=== PATIENT | female | born 1980 | race Caucasian/White ===

== ENCOUNTER 2017-02-02 08:25 | Emergency (ER) | payer MEDICAID ==
[~2017-02-02 08:25] MED LIST: GLU5 PO; GLU500 PO; METFORMIN
[2017-02-02 09:09] LABS: BASOPHIL % 0.3 % (0-2); PLATELET COUNT 244 x10^3mcL (130-400); RED CELL DISTRIBUTION WIDTH 13.6 % (11.5-14.5)
[2017-02-02 09:15] LABS: CALCIUM 8.5 mg/dL (8.5-10.1); CARBON DIOXIDE 27.1 mmol/L (21-32); CHLORIDE SERUM 102 mmol/L (98-107); CREATININE SERUM 0.7 mg/dL (0.6-1.0); GFR1 > 60 mL/min; GLUCOSE SERUM 361 mg/dL (74-106); POTASSIUM SERUM 4.3 mmol/L (3.5-5.1); SODIUM SERUM 137 mmol/L (136-145)
[2017-02-02 09:48] VITALS: BP 105/51
== END 2017-02-02 10:40 | disposition home or self-care (01) ==
LOC: ED 08:25
PROVIDERS: Emergency Medicine
DX: B34.9 Viral infection, unspecified (principal); I10 Essential (primary) hypertension; E11.9 Type 2 diabetes mellitus without complications; R11.2 Nausea with vomiting, unspecified; Z88.8 Allergy status to other drugs, medicaments and biological substances
CPT/HCPCS: J1815; J1885; J7613; J7644; Q0092; Q0162

== ENCOUNTER 2017-04-04 19:50 | Emergency (ER) | payer MEDICAID ==
[~2017-04-04] VITALS: Ht 170.2 cm; Wt 136.1 kg
[2017-04-04 20:05] VITALS: BP 133/59
[2017-04-04 22:09] LABS: BASOPHIL % 0.7 % (0-2); PLATELET COUNT 310 x10^3mcL (130-400)
[2017-04-04 22:10] LABS: RED CELL DISTRIBUTION WIDTH 14.7 % (11.5-14.5)
[2017-04-04 22:25] LABS: CALCIUM 8.9 mg/dL (8.5-10.1); CARBON DIOXIDE 26.6 mmol/L (21-32); CHLORIDE SERUM 97 mmol/L (98-107); CREATININE SERUM 0.8 mg/dL (0.6-1.0); GFR1 > 60 mL/min; GLUCOSE SERUM 393 mg/dL (74-106); SODIUM SERUM 132 mmol/L (136-145)
[2017-04-04 22:29] LABS: ALKALINE PHOSPHATASE 114 U/L (46-116); ALT/SGPT 19 U/L (14-59); AMYLASE 37 U/L (25-115); AST/SGOT 12 U/L (15-37); BILIRUBIN TOTAL 0.27 mg/dL (0.20-1.00); LIPASE 173 IU/L (73-393); TOTAL PROTEIN, SERUM 7.2 g/dL (6.4-8.2)
[2017-04-04 22:30] LABS: ALBUMIN 3.1 g/dL (3.4-5.0)
== END 2017-04-04 23:50 | disposition home or self-care (01) ==
LOC: ED 19:50
PROVIDERS: Emergency Medicine
DX: R10.11 Right upper quadrant pain (principal); I10 Essential (primary) hypertension; E11.9 Type 2 diabetes mellitus without complications; Z79.84 Long term (current) use of oral hypoglycemic drugs
CPT/HCPCS: 36415; 83880; J1885

== ENCOUNTER 2017-06-06 16:17 | Emergency (ER) | payer MEDICAID ==
[2017-06-06 18:05] VITALS: BP 131/74
== END 2017-06-06 18:05 | disposition home or self-care (01) ==
LOC: ED 16:17
DX: M54.42 Lumbago with sciatica, left side (principal); I10 Essential (primary) hypertension; E11.9 Type 2 diabetes mellitus without complications; Z88.5 Allergy status to narcotic agent; Z79.84 Long term (current) use of oral hypoglycemic drugs
CPT/HCPCS: Q0092

== ENCOUNTER 2017-07-02 08:19 | Emergency (ER) | payer MEDICAID ==
[~2017-07-02] VITALS: Ht 170.2 cm; Wt 136.1 kg
[2017-07-02 10:11] VITALS: BP 140/65
== END 2017-07-02 10:10 | disposition home or self-care (01) ==
LOC: ED 08:19
DX: M54.31 Sciatica, right side (principal); I10 Essential (primary) hypertension; E11.9 Type 2 diabetes mellitus without complications; Z90.89 Acquired absence of other organs; Z90.49 Acquired absence of other specified parts of digestive tract

== ENCOUNTER 2017-07-06 09:31 | Emergency (ER) | payer MEDICAID ==
[2017-07-06 13:13] VITALS: BP 129/74
== END 2017-07-06 13:13 | disposition home or self-care (01) ==
LOC: ED 09:31
DX: M54.31 Sciatica, right side (principal); R51 Headache; I10 Essential (primary) hypertension; E11.9 Type 2 diabetes mellitus without complications; Z90.49 Acquired absence of other specified parts of digestive tract; Z90.89 Acquired absence of other organs; Z88.6 Allergy status to analgesic agent; Z79.84 Long term (current) use of oral hypoglycemic drugs

== ENCOUNTER 2017-08-14 13:55 | Emergency (ER) | payer MEDICAID ==
[~2017-08-14] VITALS: Ht 170.2 cm; Wt 132.0 kg
[2017-08-14 14:45] LABS: CALCIUM 8.6 mg/dL (8.5-10.1); CARBON DIOXIDE 26.6 mmol/L (21-32); CHLORIDE SERUM 94 mmol/L (98-107); CREATININE SERUM 0.7 mg/dL (0.6-1.0); GFR1 > 60 mL/min; GLUCOSE SERUM 334 mg/dL (74-106); POTASSIUM SERUM 4.2 mmol/L (3.5-5.1); SODIUM SERUM 132 mmol/L (136-145)
[2017-08-14 14:47] LABS: PLATELET COUNT 201 x10^3mcL (130-400)
[2017-08-14 14:50] LABS: BASOPHIL % 0 % (0-2); RED CELL DISTRIBUTION WIDTH 14.8 % (11.5-14.5)
[2017-08-14 14:52] LABS: ALKALINE PHOSPHATASE 121 U/L (46-116); ALT/SGPT 21 U/L (14-59); AST/SGOT 22 U/L (15-37); BILIRUBIN TOTAL 0.7 mg/dL (0.20-1.00); LIPASE 85 IU/L (73-393); TOTAL PROTEIN, SERUM 7.4 g/dL (6.4-8.2)
[2017-08-14 14:53] LABS: ALBUMIN 2.7 g/dL (3.4-5.0); AMYLASE 22 U/L (25-115)
[2017-08-14 15:23] VITALS: BP 97/64
== END 2017-08-14 15:23 | disposition home or self-care (01) ==
LOC: ED 13:55
PROVIDERS: Emergency Medicine
DX: K29.70 Gastritis, unspecified, without bleeding (principal); I10 Essential (primary) hypertension; E11.9 Type 2 diabetes mellitus without complications; Z88.5 Allergy status to narcotic agent; Z79.84 Long term (current) use of oral hypoglycemic drugs
CPT/HCPCS: 83880; J0780; J1885

== ENCOUNTER 2017-09-17 11:46 | Emergency (ER) | payer MEDICAID ==
[~2017-09-17] VITALS: Ht 61 cm; Wt 2.5 kg
[2017-09-17 12:03] VITALS: Ht 61 cm; Wt 2.5 kg
[2017-09-17 16:00] LABS: BASOPHIL % 0.1 % (0-2); PLATELET COUNT 391 x10^3mcL (130-400); RED CELL DISTRIBUTION WIDTH 14.4 % (11.5-14.5)
[2017-09-17 16:08] LABS: UA SPECIFIC GRAVITY <=1.005 (1.005-1.035); microscopic required? YES; urine erythrocyte TRACE (NEGATIVE)
[2017-09-17 16:12] LABS: CALCIUM 9.2 mg/dL (8.5-10.1); CARBON DIOXIDE 24.8 mmol/L (21-32); CHLORIDE SERUM 91 mmol/L (98-107); CREATININE SERUM 0.8 mg/dL (0.6-1.0); GFR1 > 60 mL/min; GLUCOSE SERUM 395 mg/dL (74-106); POTASSIUM SERUM 3.8 mmol/L (3.5-5.1); SODIUM SERUM 129 mmol/L (136-145)
[2017-09-17 16:17] LABS: ALKALINE PHOSPHATASE 106 U/L (46-116); ALT/SGPT 9 U/L (14-59); AST/SGOT 7 U/L (15-37); BILIRUBIN TOTAL 0.64 mg/dL (0.20-1.00); HDL CHOLESTEROL 44 mg/dL (40-60); LIPASE 118 IU/L (73-393)
[2017-09-17 16:18] LABS: ALBUMIN 2.9 g/dL (3.4-5.0); AMYLASE 22 U/L (25-115); CHOLESTEROL 130 mg/dL (<200); TOTAL PROTEIN, SERUM 8.4 g/dL (6.4-8.2)
[2017-09-17 16:19] LABS: AMPHETAMINE QUAL UR NONE DETECTED (NEG <=1000)
[2017-09-17 19:15] VITALS: BP 105/66
== END 2017-09-17 19:16 | disposition home or self-care (01) ==
LOC: ED 11:46 → DU 17:23 → ED 17:23
PROVIDERS: Emergency Medicine
DX: E11.10 Type 2 diabetes mellitus with ketoacidosis without coma (principal); N39.0 Urinary tract infection, site not specified; E66.01 Morbid (severe) obesity due to excess calories; I10 Essential (primary) hypertension
CPT/HCPCS: 82962; 83880; J1630; J1815; J1885; J1956; J7030

== ENCOUNTER 2017-12-15 07:02 | Emergency (ER) | payer OTHER ==
[~2017-12-15] VITALS: Ht 170.2 cm; Wt 136.1 kg
[2017-12-15 07:10] VITALS: Ht 170.2 cm; Wt 136.1 kg
[2017-12-15 08:10] LABS: microscopic required? YES; urine erythrocyte TRACE (NEGATIVE)
[2017-12-15 08:19] LABS: CALCIUM 9.1 mg/dL (8.5-10.1); CARBON DIOXIDE 28.2 mmol/L (21-32); CHLORIDE SERUM 98 mmol/L (98-107); CREATININE SERUM 0.6 mg/dL (0.6-1.0); GFR1 > 60 mL/min; GLUCOSE SERUM 337 mg/dL (74-106); POTASSIUM SERUM 4.4 mmol/L (3.5-5.1); SODIUM SERUM 132 mmol/L (136-145)
[2017-12-15 08:25] LABS: ALBUMIN 3.2 g/dL (3.4-5.0); ALKALINE PHOSPHATASE 87 U/L (46-116); ALT/SGPT 20 U/L (14-59); AST/SGOT 15 U/L (15-37); BASOPHIL % 0.3 % (0-2); BILIRUBIN TOTAL 0.4 mg/dL (0.20-1.00); LIPASE 126 IU/L (73-393); PLATELET COUNT 358 x10^3mcL (130-400); TOTAL PROTEIN, SERUM 7.3 g/dL (6.4-8.2)
[2017-12-15 08:27] LABS: RED CELL DISTRIBUTION WIDTH 17.6 % (11.5-14.5)
[2017-12-15 09:36] VITALS: BP 129/73
== END 2017-12-15 09:37 | disposition home or self-care (01) ==
LOC: ED 07:02
PROVIDERS: Emergency Medicine
DX: N10 Acute pyelonephritis (principal); E66.9 Obesity, unspecified; E11.65 Type 2 diabetes mellitus with hyperglycemia; I10 Essential (primary) hypertension; R11.0 Nausea; R06.02 Shortness of breath; Z90.49 Acquired absence of other specified parts of digestive tract
CPT/HCPCS: J0696; J3010; J7030; Q0162

== ENCOUNTER 2018-01-05 07:56 | Emergency (ER) | payer OTHER ==
[~2018-01-05] VITALS: Ht 170.2 cm; Wt 126.1 kg
[2018-01-05 08:07] VITALS: Ht 170.2 cm; Wt 126.1 kg
[2018-01-05 11:31] VITALS: BP 111/65
== END 2018-01-05 11:31 | disposition home or self-care (01) ==
LOC: ED 07:56
DX: S86.811A Strain of other muscle(s) and tendon(s) at lower leg level, right leg, initial encounter (principal); M54.41 Lumbago with sciatica, right side; I10 Essential (primary) hypertension; E11.9 Type 2 diabetes mellitus without complications; E66.9 Obesity, unspecified; Z90.49 Acquired absence of other specified parts of digestive tract; W22.8XXA Striking against or struck by other objects, initial encounter; Y93.89 Activity, other specified; Y92.89 Other specified places as the place of occurrence of the external cause; Y99.8 Other external cause status
CPT/HCPCS: J1885; J2270; Q0092; Q0162

== ENCOUNTER 2018-05-27 15:50 | Emergency (ER) | payer OTHER ==
[~2018-05-27] VITALS: Ht 170.2 cm; Wt 113.4 kg
[2018-05-27 16:25] VITALS: Ht 170.2 cm; Wt 113.4 kg
[2018-05-27 17:57] LABS: CALCIUM 8.7 mg/dL (8.5-10.1); CARBON DIOXIDE 30.8 mmol/L (21-32); CHLORIDE SERUM 99 mmol/L (98-107); CREATININE SERUM 0.8 mg/dL (0.6-1.0); GFR1 > 60 mL/min; GLUCOSE SERUM 407 mg/dL (74-106); POTASSIUM SERUM 4.3 mmol/L (3.5-5.1); SODIUM SERUM 137 mmol/L (136-145)
[2018-05-27 18:42] VITALS: BP 140/80
== END 2018-05-27 19:12 | disposition home or self-care (01) ==
LOC: ED 15:50
PROVIDERS: Emergency Medicine
DX: S92.192A Other fracture of left talus, initial encounter for closed fracture (principal); S96.912A Strain of unspecified muscle and tendon at ankle and foot level, left foot, initial encounter; E11.9 Type 2 diabetes mellitus without complications; I10 Essential (primary) hypertension; E66.9 Obesity, unspecified; Z90.89 Acquired absence of other organs; Z90.49 Acquired absence of other specified parts of digestive tract; Z98.890 Other specified postprocedural states; W18.39XA Other fall on same level, initial encounter; Y93.89 Activity, other specified; Y92.89 Other specified places as the place of occurrence of the external cause; Y99.8 Other external cause status
CPT/HCPCS: 36415; 82962; J1815; J1885

== ENCOUNTER 2018-06-03 05:44 | Emergency (ER) | payer OTHER ==
[~2018-06-03] VITALS: Ht 170.2 cm; Wt 130.6 kg
[2018-06-03 05:47] VITALS: Ht 170.2 cm; Wt 130.6 kg
[2018-06-03 06:50] LABS: BASOPHIL % 0.7 % (0-2); PLATELET COUNT 277 x10^3mcL (130-400); RED CELL DISTRIBUTION WIDTH 12.9 % (11.5-14.5)
[2018-06-03 06:58] LABS: CALCIUM 8.4 mg/dL (8.5-10.1); CARBON DIOXIDE 26.9 mmol/L (21-32); CHLORIDE SERUM 99 mmol/L (98-107); CREATININE SERUM 0.6 mg/dL (0.6-1.0); GFR1 > 60 mL/min; GLUCOSE SERUM 336 mg/dL (74-106); POTASSIUM SERUM 4.5 mmol/L (3.5-5.1); SODIUM SERUM 135 mmol/L (136-145)
[2018-06-03 07:02] LABS: ALKALINE PHOSPHATASE 112 U/L (46-116); ALT/SGPT 15 U/L (14-59); AST/SGOT 12 U/L (15-37); BILIRUBIN TOTAL 0.53 mg/dL (0.20-1.00); LIPASE 162 IU/L (73-393); TOTAL PROTEIN, SERUM 7.5 g/dL (6.4-8.2)
[2018-06-03 07:03] LABS: ALBUMIN 3.1 g/dL (3.4-5.0)
[2018-06-03 08:47] LABS: UA SPECIFIC GRAVITY 1.015 (1.005-1.035); microscopic required? YES; urine erythrocyte 2+ (NEGATIVE)
[2018-06-03 09:45] VITALS: BP 138/84
== END 2018-06-03 09:45 | disposition home or self-care (01) ==
LOC: ED 05:44
PROVIDERS: Emergency Medicine
DX: N39.0 Urinary tract infection, site not specified (principal); Z90.89 Acquired absence of other organs; I10 Essential (primary) hypertension; E66.9 Obesity, unspecified; Z68.42 Body mass index [BMI] 45.0-49.9, adult; Z90.49 Acquired absence of other specified parts of digestive tract; E11.65 Type 2 diabetes mellitus with hyperglycemia; Z98.890 Other specified postprocedural states
CPT/HCPCS: 87046; 87046-59; J1885; J7030; Q0162

== ENCOUNTER 2019-01-21 14:20 | Emergency (ER) | payer OTHER ==
[~2019-01-21] VITALS: Ht 170.2 cm; Wt 136.1 kg
[2019-01-21 14:27] VITALS: Ht 170.2 cm; Wt 136.1 kg
[2019-01-21 17:38] LABS: BASOPHIL % 0.2 % (0-2); PLATELET COUNT 253 x10^3mcL (130-400); RED CELL DISTRIBUTION WIDTH 14.1 % (11.5-14.5)
[2019-01-21 17:45] LABS: CALCIUM 9.1 mg/dL (8.5-10.1); CARBON DIOXIDE 30.5 mmol/L (21-32); CHLORIDE SERUM 96 mmol/L (98-107); GFR1 > 60 mL/min; GLUCOSE SERUM 335 mg/dL (74-106); POTASSIUM SERUM 4.6 mmol/L (3.5-5.1); SODIUM SERUM 133 mmol/L (136-145)
[2019-01-21 17:49] LABS: ALKALINE PHOSPHATASE 113 U/L (46-116); ALT/SGPT 17 U/L (14-59); AST/SGOT 11 U/L (15-37); BILIRUBIN TOTAL 0.4 mg/dL (0.20-1.00); TOTAL PROTEIN, SERUM 7.6 g/dL (6.4-8.2)
[2019-01-21 17:53] LABS: ALBUMIN 3.2 g/dL (3.4-5.0)
[2019-01-21 18:04] LABS: microscopic required? YES; urine erythrocyte TRACE (NEGATIVE)
[2019-01-21 21:26] VITALS: BP 150/79
== END 2019-01-21 21:26 | disposition left against medical advice (07) ==
LOC: ED 14:20
PROVIDERS: Emergency Medicine
DX: R65.10 Systemic inflammatory response syndrome (SIRS) of non-infectious origin without acute organ dysfunction (principal); N39.0 Urinary tract infection, site not specified; I10 Essential (primary) hypertension; E66.9 Obesity, unspecified; E11.9 Type 2 diabetes mellitus without complications; Z90.89 Acquired absence of other organs; Z90.49 Acquired absence of other specified parts of digestive tract; Z98.890 Other specified postprocedural states
CPT/HCPCS: 87804; J1885; J1956; J2405; J7030; J7050; Q0092

== ENCOUNTER 2019-02-08 12:43 | Emergency (ER) | payer OTHER ==
[~2019-02-08] VITALS: Ht 170.2 cm; Wt 129.3 kg
[2019-02-08 12:54] VITALS: Ht 170.2 cm; Wt 129.3 kg
[2019-02-08 13:57] LABS: BASOPHIL % 0.4 % (0-2); PLATELET COUNT 366 x10^3mcL (130-400)
[2019-02-08 13:59] LABS: RED CELL DISTRIBUTION WIDTH 14.6 % (11.5-14.5)
[2019-02-08 14:24] LABS: FREE T4 0.93 ng/dL (0.76-1.46); FREE THYROXINE INDEX 2.1 ug/dL (1.4-4.5); T4(THYROXINE) 6.2 ug/dL (4.7-13.3)
[2019-02-08 14:53] LABS: CREATININE SERUM 1.1 mg/dL (0.6-1.0)
[2019-02-08 15:00] LABS: BILIRUBIN TOTAL 0.29 mg/dL (0.20-1.00); POTASSIUM SERUM 4.5 mmol/L (3.5-5.1); TOTAL PROTEIN, SERUM 7.4 g/dL (6.4-8.2)
[2019-02-08 15:01] LABS: ALBUMIN 3.3 g/dL (3.4-5.0); CHOLESTEROL/HDL RATIO 4.3
[2019-02-08 15:32] LABS: T3 TOTAL 0.83 ng/mL
[2019-02-08 16:37] VITALS: BP 111/66
== END 2019-02-08 17:47 | disposition home or self-care (01) ==
LOC: ED 12:43
PROVIDERS: Specialist
DX: E11.65 Type 2 diabetes mellitus with hyperglycemia (principal); E66.01 Morbid (severe) obesity due to excess calories; I10 Essential (primary) hypertension; Z90.89 Acquired absence of other organs; Z90.49 Acquired absence of other specified parts of digestive tract; Z98.890 Other specified postprocedural states
CPT/HCPCS: 82962; 83880; 84439; J1815; J7030; Q0092

== ENCOUNTER 2019-04-25 14:24 | Emergency (ER) | payer OTHER ==
[~2019-04-25] VITALS: Ht 170.2 cm; Wt 137.4 kg
[2019-04-25 14:36] VITALS: BP 129/71; Ht 170.2 cm; Wt 137.4 kg
== END 2019-04-25 17:00 | disposition left against medical advice (07) ==
LOC: ED 14:24
DX: Z53.21 Procedure and treatment not carried out due to patient leaving prior to being seen by health care provider (principal)
CPT/HCPCS: 82962

== ENCOUNTER 2019-06-27 21:43 | Inpatient (IN) | payer OTHER ==
[~2019-06-27] VITALS: Ht 172.7 cm; Wt 146.8 kg
[2019-06-27 23:04] LABS: PLATELET COUNT 198 x10^3mcL (130-400); RED CELL DISTRIBUTION WIDTH 14.5 % (11.5-14.5)
[2019-06-27 23:23] LABS: CARBON DIOXIDE 22.1 mmol/L (21-32); CHLORIDE SERUM 96 mmol/L (98-107); CREATININE SERUM 2.2 mg/dL (0.6-1.0); GFR1 27 mL/min; POTASSIUM SERUM 3.6 mmol/L (3.5-5.1); SODIUM SERUM 133 mmol/L (136-145)
[2019-06-27 23:24] LABS: ALBUMIN 2.5 g/dL (3.4-5.0); ALKALINE PHOSPHATASE 247 U/L (46-116); ALT/SGPT 25 U/L (14-59); AST/SGOT 39 U/L (15-37); BILIRUBIN TOTAL 0.6 mg/dL (0.20-1.00); CALCIUM 8.5 mg/dL (8.5-10.1); CHOLESTEROL 105 mg/dL (<200); LIPASE 89 IU/L (73-393); MAGNESIUM 1.1 mg/dL (1.8-2.4); TOTAL PROTEIN, SERUM 6.5 g/dL (6.4-8.2)
[2019-06-27 23:25] LABS: HDL CHOLESTEROL 46 mg/dL (40-60); T4(THYROXINE) 6.5 ug/dL (4.7-13.3)
[2019-06-27 23:28] LABS: BAND NEUTROPHIL 18 % (0-10); METAMYELOCTE 2 % (0-2); MONOCYTE 1 % (0-7); SEGMENTED NEUTROPHILS 76 % (37-75)
[2019-06-27 23:29] LABS: GLUCOSE SERUM 579 mg/dL (74-106)
[2019-06-27 23:32] LABS: rbc morphology (normal/abnorm) NORMAL (NORMAL)
[2019-06-28 01:09] LABS: microscopic required? YES; urine erythrocyte 1+ (NEGATIVE)
[2019-06-28 01:45] LABS: AMPHETAMINE QUAL UR NONE DETECTED (See below)
[2019-06-28 03:00] VITALS: BP 72/36
[2019-06-28] MEDS ORDERED: GLIPIZIDE5 M2 PO (03:06)
[2019-06-28] MEDS ORDERED: GLIPIZIDE2.5 M1 PO (03:09)
[2019-06-28 04:15] LABS: PLATELET COUNT 162 x10^3mcL (130-400)
[2019-06-28 04:19] LABS: RED CELL DISTRIBUTION WIDTH 14.8 % (11.5-14.5)
[2019-06-28 04:24] LABS: BAND NEUTROPHIL 18 % (0-10); METAMYELOCTE 2 % (0-2); MONOCYTE 1 % (0-7); SEGMENTED NEUTROPHILS 76 % (37-75); rbc morphology (normal/abnorm) NORMAL (NORMAL)
[2019-06-28 04:57] LABS: CALCIUM 8.1 mg/dL (8.5-10.1); CARBON DIOXIDE 21.2 mmol/L (21-32); CREATININE SERUM 2.3 mg/dL (0.6-1.0); POTASSIUM SERUM 3.9 mmol/L (3.5-5.1)
[2019-06-28 05:27] VITALS: BP 76/44
[2019-06-28 08:00] VITALS: BP 97/60
[2019-06-28 11:20] VITALS: BP 101/53
[2019-06-28 12:24] VITALS: BP 97/60
[2019-06-28 16:30] VITALS: BP 91/58
[2019-06-29 05:24] LABS: PLATELET COUNT 110 x10^3mcL (130-400)
[2019-06-29 05:34] LABS: CALCIUM 7.4 mg/dL (8.5-10.1); CARBON DIOXIDE 16.4 mmol/L (21-32); CREATININE SERUM 1.8 mg/dL (0.6-1.0); MAGNESIUM 1.7 mg/dL (1.8-2.4); PHOSPHOROUS 3.9 mg/dL (2.5-4.9); POTASSIUM SERUM 3.6 mmol/L (3.5-5.1)
[2019-06-29 06:06] LABS: BAND NEUTROPHIL 12 % (0-10); BASOPHIL 0 % (0-2); MONOCYTE 2 % (0-7); SEGMENTED NEUTROPHILS 78 % (37-75)
[2019-06-29 06:07] LABS: PLATELET MORPHOLOGY PLATELETS NORMAL; rbc morphology (normal/abnorm) NORMAL (NORMAL)
[2019-06-29 07:20] VITALS: BP 127/73
[2019-06-29 11:30] VITALS: BP 98/55
[2019-06-29 16:00] VITALS: BP 116/74
[2019-06-29 19:20] VITALS: BP 122/59
[2019-06-29 23:20] VITALS: BP 119/74
[2019-06-30 03:18] VITALS: BP 107/65
[2019-06-30 05:20] LABS: BASOPHIL % 0 % (0-2); PLATELET COUNT 88 x10^3mcL (130-400); RED CELL DISTRIBUTION WIDTH 15.6 % (11.5-14.5)
[2019-06-30 05:32] LABS: CALCIUM 7.2 mg/dL (8.5-10.1); CARBON DIOXIDE 21.3 mmol/L (21-32); CREATININE SERUM 1.7 mg/dL (0.6-1.0); MAGNESIUM 2.1 mg/dL (1.8-2.4); PHOSPHOROUS 2.7 mg/dL (2.5-4.9); POTASSIUM SERUM 3.5 mmol/L (3.5-5.1)
[2019-06-30 08:19] VITALS: Ht 172.7 cm; Wt 146.8 kg
[2019-06-30 08:22] VITALS: BP 104/75
[2019-06-30 11:56] VITALS: BP 137/107
[2019-06-30 16:13] VITALS: BP 133/76
[2019-06-30 19:20] VITALS: BP 137/82
[2019-06-30 23:04] VITALS: BP 113/65
[2019-07-01 03:09] VITALS: BP 108/73
[2019-07-01 05:22] LABS: BASOPHIL % 0.1 % (0-2)
[2019-07-01 05:23] LABS: PLATELET COUNT 93 x10^3mcL (130-400); RED CELL DISTRIBUTION WIDTH 15.8 % (11.5-14.5)
[2019-07-01 05:28] LABS: CALCIUM 7.4 mg/dL (8.5-10.1); CARBON DIOXIDE 21.7 mmol/L (21-32); CREATININE SERUM 1.5 mg/dL (0.6-1.0); MAGNESIUM 2.1 mg/dL (1.8-2.4); POTASSIUM SERUM 3.5 mmol/L (3.5-5.1)
[2019-07-01 07:45] VITALS: BP 103/58
[2019-07-01 11:40] VITALS: BP 114/55
[2019-07-01 14:24] VITALS: BP 131/75
[2019-07-01 16:47] VITALS: BP 143/85
[2019-07-01 19:58] VITALS: BP 136/104
[2019-07-02 05:59] VITALS: BP 90/56
[2019-07-02 06:15] LABS: BASOPHIL % 0.2 % (0-2)
[2019-07-02 06:27] LABS: PLATELET COUNT 100 x10^3mcL (130-400); RED CELL DISTRIBUTION WIDTH 15.6 % (11.5-14.5)
[2019-07-02 06:37] LABS: CALCIUM 7.3 mg/dL (8.5-10.1); CARBON DIOXIDE 20.1 mmol/L (21-32); CREATININE SERUM 1.1 mg/dL (0.6-1.0); MAGNESIUM 2.1 mg/dL (1.8-2.4); PHOSPHOROUS 2.1 mg/dL (2.5-4.9); POTASSIUM SERUM 3.9 mmol/L (3.5-5.1)
[2019-07-02 09:12] VITALS: BP 139/71
[2019-07-02 12:43] VITALS: BP 114/62
[2019-07-02 17:14] VITALS: BP 120/61
[2019-07-02 19:30] VITALS: BP 110/42
[2019-07-03 05:04] VITALS: BP 112/62
[2019-07-03 08:31] VITALS: BP 91/53
[2019-07-03 09:09] LABS: CALCIUM 7.4 mg/dL (8.5-10.1); CARBON DIOXIDE 20.7 mmol/L (21-32); CHLORIDE SERUM 106 mmol/L (98-107); GFR1 > 60 mL/min; GLUCOSE SERUM 152 mg/dL (74-106); POTASSIUM SERUM 3.8 mmol/L (3.5-5.1); SODIUM SERUM 137 mmol/L (136-145)
[2019-07-03 09:11] LABS: BASOPHIL % 0.4 % (0-2); PLATELET COUNT 154 x10^3mcL (130-400)
[2019-07-03 09:32] LABS: RED CELL DISTRIBUTION WIDTH 15.9 % (11.5-14.5)
[2019-07-03 12:38] VITALS: BP 108/69
[2019-07-03 17:16] VITALS: BP 137/77
[2019-07-03 20:24] VITALS: BP 133/68
[2019-07-04 07:51] LABS: BASOPHIL % 0.2 % (0-2); PLATELET COUNT 195 x10^3mcL (130-400)
[2019-07-04 08:03] LABS: CALCIUM 7.6 mg/dL (8.5-10.1); CARBON DIOXIDE 23.6 mmol/L (21-32); CHLORIDE SERUM 107 mmol/L (98-107); CREATININE SERUM 0.8 mg/dL (0.6-1.0); GFR1 > 60 mL/min; GLUCOSE SERUM 183 mg/dL (74-106); MAGNESIUM 1.7 mg/dL (1.8-2.4); PHOSPHOROUS 2.6 mg/dL (2.5-4.9); POTASSIUM SERUM 3.9 mmol/L (3.5-5.1); SODIUM SERUM 140 mmol/L (136-145)
[2019-07-04 08:04] LABS: RED CELL DISTRIBUTION WIDTH 15.9 % (11.5-14.5)
[2019-07-04 08:21] VITALS: BP 127/73
[2019-07-04 11:40] VITALS: BP 117/68
[2019-07-04] MEDS ORDERED: FLA500 PO (11:51)
[2019-07-04] MEDS ORDERED: LEV500 PO (11:51)
[2019-07-04 12:35] VITALS: BP 117/68
== END 2019-07-04 12:46 | disposition home health service (06) | DRG 720 ==
LOC: ED 21:43 → IC 23:55 → DU 23:55 → IC 06-28 02:45 → DU 06-28 02:58 → IC 06-28 04:41 → DU 07-01 14:27
PROVIDERS: Emergency Medicine; Internal Medicine; ADMIT General Practice
PROC: 02HV33Z Insertion of Infusion Device into Superior Vena Cava, Percutaneous Approach (ICD-10-PCS; principal; 2019-06-28)
PROC: B548ZZA Ultrasonography of Superior Vena Cava, Guidance (ICD-10-PCS; 2019-06-28)
PROC: 5A09357 Assistance with Respiratory Ventilation, Less than 24 Consecutive Hours, Continuous Positive Airway Pressure (ICD-10-PCS; 2019-06-28)
PROC: 5A09357 Assistance with Respiratory Ventilation, Less than 24 Consecutive Hours, Continuous Positive Airway Pressure (ICD-10-PCS; 2019-06-29)
DX: A41.9 Sepsis, unspecified organism (principal); N17.0 Acute kidney failure with tubular necrosis; J96.01 Acute respiratory failure with hypoxia; R65.21 Severe sepsis with septic shock; G92 Toxic encephalopathy; J18.9 Pneumonia, unspecified organism; N18.4 Chronic kidney disease, stage 4 (severe); E86.0 Dehydration; E11.22 Type 2 diabetes mellitus with diabetic chronic kidney disease; E87.1 Hypo-osmolality and hyponatremia; E11.65 Type 2 diabetes mellitus with hyperglycemia; I12.9 Hypertensive chronic kidney disease with stage 1 through stage 4 chronic kidney disease, or unspecified chronic kidney disease; N39.0 Urinary tract infection, site not specified; E83.42 Hypomagnesemia; E66.01 Morbid (severe) obesity due to excess calories; G47.33 Obstructive sleep apnea (adult) (pediatric); J44.9 Chronic obstructive pulmonary disease, unspecified; D64.9 Anemia, unspecified; B96.20 Unspecified Escherichia coli [E. coli] as the cause of diseases classified elsewhere; Z79.84 Long term (current) use of oral hypoglycemic drugs; Z90.49 Acquired absence of other specified parts of digestive tract; Z68.42 Body mass index [BMI] 45.0-49.9, adult
CPT/HCPCS: 36556; 36600; 78598; 82962; 83880; 85378; 97116-GP; 97530-GP; A9540; G0378; G0480; J0692; J0696; J1642; J1815; J1956; J2060; J2185; J2405; J3370; J3475; J3490; J7030; J7050; J7620; J8597; Q0092

== ENCOUNTER 2020-04-07 16:05 | Emergency (ER) | payer OTHER ==
[~2020-04-07] VITALS: Ht 170.2 cm; Wt 153.8 kg
[~2020-04-07 16:05] MED LIST changes: +FLA500 PO; +GLIPIZIDE2.5 M1 PO; +GLIPIZIDE5 M2 PO; +LEV500 PO
[2020-04-07 16:17] VITALS: Ht 170.2 cm; Wt 153.8 kg
[2020-04-07 18:16] VITALS: BP 96/56
== END 2020-04-07 18:16 | disposition home or self-care (01) ==
LOC: ED 16:05
DX: L03.211 Cellulitis of face (principal); I10 Essential (primary) hypertension; E11.9 Type 2 diabetes mellitus without complications
CPT/HCPCS: 82962; J1885; Q0092

== ENCOUNTER 2020-05-22 11:34 | Emergency (ER) | payer OTHER ==
[~2020-05-22] VITALS: Ht 170.2 cm; Wt 136.1 kg
[2020-05-22 11:42] VITALS: BP 110/57; Ht 170.2 cm; Wt 136.1 kg
== END 2020-05-22 13:22 | disposition home or self-care (01) ==
LOC: ED 11:34
DX: T25.022A Burn of unspecified degree of left foot, initial encounter (principal); T25.021A Burn of unspecified degree of right foot, initial encounter; I10 Essential (primary) hypertension; E11.9 Type 2 diabetes mellitus without complications; X58.XXXA Exposure to other specified factors, initial encounter; Y93.89 Activity, other specified; Y92.89 Other specified places as the place of occurrence of the external cause; Y99.8 Other external cause status

== ENCOUNTER 2020-06-28 20:59 | Inpatient (IN) | payer OTHER ==
[~2020-06-28] VITALS: Ht 170.2 cm; Wt 159.3 kg
[2020-06-28 21:06] VITALS: Ht 170.2 cm; Wt 159.3 kg
[2020-06-28 23:09] LABS: BASOPHIL % 0.3 % (0-2); PLATELET COUNT 547 x10^3mcL (130-400); RED CELL DISTRIBUTION WIDTH 16.9 % (11.5-14.5)
[2020-06-28 23:13] LABS: BILIRUBIN TOTAL 0.22 mg/dL (0.20-1.00); CALCIUM 8.3 mg/dL (8.5-10.1); CREATININE SERUM 1.4 mg/dL (0.6-1.0); TOTAL PROTEIN, SERUM 7.7 g/dL (6.4-8.2)
[2020-06-28 23:30] LABS: ALBUMIN 2.8 g/dL (3.4-5.0); C REACTIVE PROTEIN 18.8 mg/dL (<=0.9)
[2020-06-28 23:31] LABS: POTASSIUM SERUM 6.3 mmol/L (3.5-5.1)
[2020-06-28 23:49] LABS: ERYTHROCYTE SED RATE 118 mm/hr (0-20)
[2020-06-29] VITALS (7 sets, daily range): BP systolic 100–147; BP diastolic 52–80
[2020-06-29 00:18] LABS: microscopic required? NO
[2020-06-29 00:32] LABS: urine erythrocyte NEGATIVE (NEGATIVE)
[2020-06-29] MEDS ORDERED: FORTAMET500 M1 PO (00:49)
[2020-06-29] MEDS ORDERED: LISINOPRIL1 PO1 PO (00:50)
[2020-06-29] MEDS ORDERED: GRALISE600 MG PO (00:50)
[2020-06-29] MEDS ORDERED: MICROZIDE12.5 MG PO (00:52)
[2020-06-29] MEDS ORDERED: ASPIRIN ADULT L81 M5 PO (00:52)
[2020-06-29] MEDS ORDERED: DULOXETINE HYDR30 MG PO (00:53)
[2020-06-29] MEDS ORDERED: BACLOFEN20 MG PO (00:54)
[2020-06-29] MEDS ORDERED: NATURE'S BLEND F1 MG PO (00:54)
[2020-06-29 01:30] LABS: CHOLESTEROL/HDL RATIO 3.8
[2020-06-29 01:42] LABS: FREE T4 1.07 ng/dL (0.76-1.46); FREE THYROXINE INDEX 2.3 ug/dL (1.4-4.5); T4(THYROXINE) 6.5 ug/dL (4.7-13.3)
[2020-06-29 01:50] LABS: T3 TOTAL 0.73 ng/mL
[2020-06-29 05:49] LABS: BASOPHIL % 0.3 % (0-2)
[2020-06-29 06:01] LABS: RED CELL DISTRIBUTION WIDTH 16.6 % (11.5-14.5)
[2020-06-29 06:03] LABS: PLATELET COUNT 516 x10^3mcL (130-400)
[2020-06-29 06:29] LABS: CALCIUM 8.2 mg/dL (8.5-10.1); CARBON DIOXIDE 22.9 mmol/L (21-32); CREATININE SERUM 1.3 mg/dL (0.6-1.0); POTASSIUM SERUM 4.8 mmol/L (3.5-5.1)
[2020-06-29 15:27] LABS: BASOPHIL % 0.4 % (0-2)
[2020-06-29 15:36] LABS: PLATELET COUNT 499 x10^3mcL (130-400); RED CELL DISTRIBUTION WIDTH 17.2 % (11.5-14.5)
[2020-06-30 04:18] VITALS: BP 140/78
[2020-06-30 07:12] LABS: BASOPHIL % 0.4 % (0-2)
[2020-06-30 07:23] LABS: PLATELET COUNT 507 x10^3mcL (130-400); RED CELL DISTRIBUTION WIDTH 16.5 % (11.5-14.5)
[2020-06-30 07:25] LABS: CALCIUM 8.2 mg/dL (8.5-10.1); CREATININE SERUM 1.1 mg/dL (0.6-1.0); POTASSIUM SERUM 4.8 mmol/L (3.5-5.1)
[2020-06-30 08:25] VITALS: BP 110/57
[2020-06-30 12:30] VITALS: BP 121/62
[2020-06-30 17:00] VITALS: BP 114/87
[2020-06-30 20:09] VITALS: BP 122/53
[2020-07-01 05:28] VITALS: BP 116/57
[2020-07-01 08:15] LABS: CALCIUM 8.5 mg/dL (8.5-10.1); CHLORIDE SERUM 101 mmol/L (98-107); GFR1 > 60 mL/min; GLUCOSE SERUM 165 mg/dL (74-106); POTASSIUM SERUM 4.5 mmol/L (3.5-5.1); SODIUM SERUM 135 mmol/L (136-145)
[2020-07-01 08:19] LABS: BASOPHIL % 0.7 % (0-2)
[2020-07-01 08:25] LABS: PLATELET COUNT 480 x10^3mcL (130-400)
[2020-07-01 08:30] VITALS: BP 128/75
[2020-07-01] MEDS ORDERED: NEU300 PO (10:23)
[2020-07-01] MEDS ORDERED: HYDROCHLOROTH12.5 M3 PO (10:24)
[2020-07-01] MEDS ORDERED: BAC PO (10:27)
[2020-07-01 12:30] VITALS: BP 142/68
[2020-07-01 13:18] VITALS: BP 142/68
== END 2020-07-01 18:18 | disposition home health service (06) | DRG 710 ==
LOC: ED 20:59 → DU 23:47
PROVIDERS: Podiatrist; Specialist; ADMIT Student in an Organized Health Care Education/Training Program; ATTEND Student in an Organized Health Care Education/Training Program
PROC: 0Y6N0Z0 Detachment at Left Foot, Complete, Open Approach (ICD-10-PCS; 2020-06-29)
PROC: 0QBR0ZZ Excision of Left Toe Phalanx, Open Approach (ICD-10-PCS; principal; 2020-06-29 12:00)
DX: A41.9 Sepsis, unspecified organism (principal); N17.0 Acute kidney failure with tubular necrosis; E43 Unspecified severe protein-calorie malnutrition; A48.0 Gas gangrene; E11.52 Type 2 diabetes mellitus with diabetic peripheral angiopathy with gangrene; I10 Essential (primary) hypertension; H53.8 Other visual disturbances; E87.5 Hyperkalemia; M54.30 Sciatica, unspecified side; D64.9 Anemia, unspecified; D47.3 Essential (hemorrhagic) thrombocythemia; E11.51 Type 2 diabetes mellitus with diabetic peripheral angiopathy without gangrene; E11.65 Type 2 diabetes mellitus with hyperglycemia; J45.909 Unspecified asthma, uncomplicated; E11.40 Type 2 diabetes mellitus with diabetic neuropathy, unspecified; E11.69 Type 2 diabetes mellitus with other specified complication; E11.621 Type 2 diabetes mellitus with foot ulcer; L97.529 Non-pressure chronic ulcer of other part of left foot with unspecified severity; M86.9 Osteomyelitis, unspecified; E66.01 Morbid (severe) obesity due to excess calories; Z20.828 Contact with and (suspected) exposure to other viral communicable diseases; Z79.84 Long term (current) use of oral hypoglycemic drugs; Z90.49 Acquired absence of other specified parts of digestive tract; Z98.891 History of uterine scar from previous surgery; Z79.82 Long term (current) use of aspirin; Z79.899 Other long term (current) drug therapy; Z79.01 Long term (current) use of anticoagulants; Z87.440 Personal history of urinary (tract) infections; Z87.01 Personal history of pneumonia (recurrent)
CPT/HCPCS: 82962; 84439; 97110-GP; 97530-GP; G0378; J1815; J2175; J2543; J3010; J3370; J3490; J7030; J7040; J7050; P9016; Q0092